=== PATIENT | female | born 1995 | race Caucasian/White ===

== ENCOUNTER 2021-02-13 10:21 | Emergency (ER) | payer SELFPAY ==
[~2021-02-13] VITALS: Ht 165.1 cm; Wt 56.7 kg
--- NOTE | 2021-02-13 10:29 | NUR ---
TO ER BED 6, ANXIETY ATTACK FOR 2 DAYS, ATTACHED TO MONITOR.
[2021-02-13] MEDS ORDERED: CHLO25CA22 PO (10:55)
[2021-02-13] MEDS ORDERED: LORAZEPAM 1 MG TABLET ONE (10:58)
[2021-02-13] MEDS ORDERED: LORAZEPAM 1 MG TABLET PO ONE (11:00)
[2021-02-13 11:05] VITALS: BP 110/61
== END 2021-02-13 11:06 | disposition home or self-care (01) ==
LOC: ER 11:03
DX: F41.9 Anxiety disorder, unspecified (principal); F10.10 Alcohol abuse, uncomplicated; Y90.9 Presence of alcohol in blood, level not specified